=== PATIENT | female | born 1970 | race Caucasian/White ===

== ENCOUNTER → 2016-09-02 | Outpatient (CLI) | payer BC, OTHER ==
[~2016-09-02] MED LIST: IOHEXOL 300 MG/ML 100ML VIAL. IV ONE
--- NOTE | 2016-09-02 10:31 | KCIC ---
Indication: Chronic cough as well as left-sided rib pain. Axial imaging through the chest was performed after the administration of intravenous contrast. One or more of the following individualized dose reduction techniques were utilized for this examination: 1. Automated exposure control 2. Adjustment of the mA and/or kV according to patient size 3. Use of iterative reconstruction technique No prior studies are available for comparison. No axillary, hilar or mediastinal lymphadenopathy is detected. No pericardial or pleural fluid is seen. There is minimal residual thymic tissue noted within the anterior mediastinum. The central airways are widely patent. The lungs appear to be clear. No infiltrates are identified. No nodule or mass is identified. Evaluation of the bony structures demonstrate healing fractures involving the left fifth and sixth lateral ribs. Fracture lines do remain partially visible and there is moderate callus formation present. No other rib fracture is detected. The upper abdomen demonstrates multiple hepatic cysts. IMPRESSION: 1. Healing left fifth and sixth lateral rib fractures. No other significant abnormality is detected. Electronically signed by: Victor Manuel Upton MD (09/02/2016 10:27 AM) [id number]
== END | disposition home or self-care (01) ==
LOC: KCIC CT 08:15
PROVIDERS: ATTEND Nurse Practitioner Family
DX: S22.42XA Multiple fractures of ribs, left side, initial encounter for closed fracture (principal); S27.9XXA Injury of unspecified intrathoracic organ, initial encounter; R05 Cough; X58.XXXA Exposure to other specified factors, initial encounter; Y93.89 Activity, other specified; Y92.89 Other specified places as the place of occurrence of the external cause; Y99.8 Other external cause status
CPT/HCPCS: 71260; Q9967

== ENCOUNTER → 2018-01-01 | Outpatient (CLI) | payer OTHER ==
--- NOTE | 2018-01-01 12:15 | RAD ---
MR#: [id number] Date of Study: 01/01/2018 Ordering Physician: LÓPEZ EPPS, Referring Physician: ROYER MORLEY Tech: RT Nena Vargas) (N) APPROVED REPORT Test Type: Exercise Stress Nurse/Tech: Theresa Bennett R.N. Test Indications: chest pain Cardiac History: smoker Medications: see ehr Medical History: see ehr Resting ECG: SR see printout Resting Heart Rate: 75 bpm Resting Blood Pressure: 156/89mmHg Pretest Chest Pain: No chest pain Nurse/Tech Notes Lungs cta, heart tones regular, good radial pulse Consent: The procedure was explained to the patient in lay terms. Informed consent was witnessed. Adiel eout was entered into [employer]. History and Stress Test performed by RT Nena Tilley) (N) Stress Symptoms No chest pain or symptoms. POST EXERCISE Reason for Termination: Reached target heart rate Target HR: Yes Max HR: 169 bpm 87.5% of Maximum Predicted HR: 175 bpm Exercise duration: 7:05 min:sec, 3 Stage Exercise capacity: 10.0METs Max Blood Pressure: 172/80mmHg Blood Pressure response to exercise: Normal blood pressure response during stress. Heart Rate response to exercise: normal Chest Pain: No. Arrhythmia: No. ST Change: No. INTERPRETATION Stress EKG Conclusion: No evidence of stress induced EKG changes. Imaging Protocol IMAGE PROTOCOL: Rest Tc-99m/stress Tc-99m 1 day Rest: Stress: Viability: Radiopharm.Tc99m RclmkjyvxCi57l Sestamibi Cfxq31vHg 35.2mCi Duration 15min. 12min. Img Date 01/01/2018 01/01/2018 Inj-Img Aeyz17hdi. 60min. Rest Admin Site:IV - Right HandAdministrator:RT Jarek (Willie)(N) Stress Admin Site: IV - Right HandAdministrator: RT Jarek (Willie)(N) STRESS DATA End Diast. Vol.63.0mlAv. Heart Pllt817.0bpm End Syst. Vol.7.0mlCO Index BSA0.0L/min Myocardial Jnox907.0gEject. Subwkwse82.0% Stress Rates Pk. Fill Rate3.78EDV/secLVtime Pk. Fill 149.33msec Pk. Empty Rate4.96ESV/secLVtime Pk. Eject85.18msec 1/3 Pk. Fill1.56EDV/sec Stress Scores Regional WT0.00Summed WT0.00 Regional WM0.00Summed WM0.00 The rest and stress images show normal perfusion, normal contraction and thickening. LV Perf. Quant 17 Seg. SSS0.00 17 Seg. SRS1.00 17 Seg. SDS0.00 Stress Defect Extent (% LAD)0.00Rest Defect Extent (% LAD)3.80Rev. Defect Extent (% LAD)0.00 Stress Defect Extent (% LCX) 0.00Rest Defect Extent (% LCX)0.00Rev. Defect Extent (% LCX)0.00 Stress Defect Extent (% RCA)0.00Rest Defect Extent (% RCA)0.00Rev. Defect Extent (% RCA)0.00 Stress Defect Extent (% LUISANA)0.00Rest Defect Extent (% LUISANA)2.00Rev. Defect Extent (% LUISANA)0.00 Other Information Quality:Average Risk Assessment: Low Risk Conclusion 1. No evidence of EKG changes with stress testing. 2. Normal perfusion at stress/rest. 3. Low risk study. 4. EF > 60%. Signed by : Nnamdi Shanks, Electronically Approved : 01/01/2018 12:14:39
== END | disposition home or self-care (01) ==
LOC: NM 08:54
PROVIDERS: ATTEND Family Medicine
DX: R07.9 Chest pain, unspecified (principal); Z82.49 Family history of ischemic heart disease and other diseases of the circulatory system; Z87.891 Personal history of nicotine dependence
CPT/HCPCS: 78452; 93017; 96374; 96376; A9500

== ENCOUNTER 2018-06-25 07:52 | Day surgery (SDC) | payer OTHER ==
[~2018-06-25] VITALS: Ht 170.2 cm; Wt 93.4 kg
[~2018-06-25 07:52] MED LIST changes: +DOCU-109 PO; +ENOX40DI3 SQ; +ESCITALOPRAM OX10 MG PO; +HYDR-2765 PO; +HYDROmorphone 2 MG/ML VIAL IV PRN; -IOHEXOL 300 MG/ML 100ML VIAL. IV ONE; +IV RINGERS,LACTATED 1000ML 1,000 ML IV SCH; +LIDOCAINE 1% PF 2 ML VIAL. ID PRN; +ONDANSETRON PF 4 MG/2 ML VIAL. IV PRN; +POLY17PO28 PO; +PROCHLORPERAZINE 10 MG/2 ML VIAL. IV PRN; +RANI300C PO; +fentaNYL PF VIAL 100 MCG/2 ML VIAL IV PRN
[2018-06-25] MEDS ORDERED: ceFAZolin 2GM PREMIX 2 GM/50 ML BAG IV ONE (08:00)
[2018-06-25 08:16] LABS: U PREG PATIENT NEGATIVE (NEG)
[2018-06-25] MEDS ORDERED: fentaNYL PF VIAL 100 MCG/2 ML VIAL ONE (08:25)
[2018-06-25] MEDS ORDERED: LIDOCAINE 2% PF 5 ML VIAL. ONE (08:25)
[2018-06-25] MEDS ORDERED: ONDANSETRON PF 4 MG/2 ML VIAL. ONE (08:25)
[2018-06-25] MEDS ORDERED: DEXAMETHASONE SOD PHOS 4 MG/ML VIAL ONE (08:25)
[2018-06-25] MEDS ORDERED: PROPOFOL 20 ML IV ONE ×2 (08:25→10:49)
[2018-06-25] MEDS ORDERED: MIDAZOLAM HCL/PF 2 MG/2 ML VIAL. ONE (08:58)
[2018-06-25] MEDS ORDERED: HYDR-3165 PO (10:15)
[2018-06-25] MEDS ORDERED: KETOROLAC 30 MG/ML INJ FOR OR. INJ ONE (10:15)
--- NOTE | 2018-06-25 10:16 | DISCH ---
DISCHARGE INSTRUCTIONS Condition on Discharge Condition on Discharge: Stable Activity After Discharge Activity Instructions for Disc: Activity as tolerated (May weight-bear and increase activity as tolerated just control swelling and protect from rubbing on incision) Bathing Instructions: Shower-keep dressing dry Weight Bearing Status after Di: As tolerated Diet after Discharge Diet after Discharge: Regular Wound Incision Care Wound/Incision Care: Change dressing (name remove dressing in 3 days may then shower no soaking until sutures removed) Contacting the [facility] after DC Call your doctor for: Concerns you may have Follow-Up Follow up with: Dr. Bond 10 days JULIO BOND MD June 25, 2018 10:16
[2018-06-25] MEDS ORDERED: SEVOFLURANE 61 TO 120 MINUTES. IH ONE (10:28)
[2018-06-25] MEDS ORDERED: SEVOFLURANE 31 TO 60 MINUTES. IH ONE (10:49)
[2018-06-25] MEDS: fentaNYL PF VIAL 100 MCG/2 ML VIAL IV PRN ×2 (11:24→11:35)
[2018-06-25] MEDS: MORPHINE SULFATE 2 MG/ML VIAL. IV PRN ×2 (11:28→11:41)
[2018-06-25] MEDS ORDERED: HYDROcodone/APAP 7.5/325MG 1 TAB TABLET PO ONE (11:30)
[2018-06-25 12:00] VITALS: BP 137/77
--- NOTE | 2018-06-25 13:10 | PDOC4 ---
Operative Note Operative Note Date of surgery 06/25/2018 Preoperative diagnosis: Retained hardware syndesmotic screws right ankle Postoperative diagnosis: Same Operative procedure: Removal of syndesmotic screws right ankle 2 Surgeon: Varun Anesthesia: Gen. Estimated blood loss: 10 mL Consultations: None Operative indications: Laurita is a 48-year-old female that it undergone previous fixation of an ankle fracture with a syndesmotic injury. I had discussed with her the role of syndesmotic screws that they are temporary fixation to allow the ligaments to heal and typically those are removed after adequate healing time to allow the ankle joint to move in its normal manner. I had described that it is no real restriction on her weightbearing and the only concerns mainly surrounding healing of the small incision. All her questions were answered she wishes to proceed with surgical evaluation and treatment. Operative text: Patient was identified procedure verified patient placed in the supine position on the operative table. After adequate amounts of general anesthesia were administered the right lower extremity was prepped and draped in standard sterile fashion with a thigh tourniquet. After timeout was performed patient procedure identified and verified the right lower extremity was exsanguinated by Esmarch bandage tourniquet inflated to 350 mmHg a small incision was localized along her previous lateral incision under radiologic guidance and dissection carried out down to the screws which were removed under fluoroscopic guidance. Syndesmosis remained intact the remaining hardware was retained and ankle joint mortise noted to be anatomically reduced. Thorough irrigation carried out normal saline solution tourniquet was deflated bleeding points controlled by electrocautery and skin closure with nylon suture sterile dressings were applied patient was returned to recovery room in stable condition having tolerated procedure well JULIO VIRK MD June 25, 2018 13:10
== END 2018-06-25 12:20 | disposition home or self-care (01) ==
LOC: SURG 07:52
PROVIDERS: ATTEND Orthopaedic Surgery
DX: T84.84XA Pain due to internal orthopedic prosthetic devices, implants and grafts, initial encounter (principal); G89.18 Other acute postprocedural pain; Z98.890 Other specified postprocedural states; Z82.49 Family history of ischemic heart disease and other diseases of the circulatory system; Z87.891 Personal history of nicotine dependence; Z79.899 Other long term (current) drug therapy; Y83.1 Surgical operation with implant of artificial internal device as the cause of abnormal reaction of the patient, or of later complication, without mention of misadventure at the time of the procedure; Y92.89 Other specified places as the place of occurrence of the external cause
CPT/HCPCS: 20680; 76000; 81025; J0696; J1100; J1885; J2001; J2250; J2270; J2405; J2704; J3010

== ENCOUNTER → 2020-04-13 | Outpatient (CLI) | payer OTHER ==
[~2020-04-13] MED LIST changes: +HYDR-3165 PO; -HYDROmorphone 2 MG/ML VIAL IV PRN; -IV RINGERS,LACTATED 1000ML 1,000 ML IV SCH; -LIDOCAINE 1% PF 2 ML VIAL. ID PRN; -ONDANSETRON PF 4 MG/2 ML VIAL. IV PRN; -PROCHLORPERAZINE 10 MG/2 ML VIAL. IV PRN; -fentaNYL PF VIAL 100 MCG/2 ML VIAL IV PRN
--- NOTE | 2020-04-13 10:41 | CARD ---
MR#: [id number] Date of Study: 04/13/2020 Ordering Physician: ADIA COWAN, Referring Physician: ADIA COWAN, Tech: Anabela Ahn, [facility] APPROVED REPORT EXAM: Two-dimensional and M-mode echocardiogram with Doppler and color Doppler. Other Information Quality : AverageHR: 93bpm INDICATION Murmur RISK FACTORS Hyperlipidemia 2D DIMENSIONS RVDd2.9 (2.9-3.5cm)Left Atrium(2D)3.8 (1.6-4.0cm) IVSd1.1 (0.7-1.1cm)Aortic Root(2D)2.6 (2.0-3.7cm) LVDd4.7 (3.9-5.9cm)LVOT Diameter2.0 (1.8-2.4cm) PWd1.1 (0.7-1.1cm)LVDs3.0 (2.5-4.0cm) FS (%) 35.3 %SV66.3 ml Aortic Valve AoV Peak Kamar.131.1cm/sAoV VTI30.0cm AO Peak GR.6.9mmHgLVOT Peak Kamar.117.8cm/s LVOT VTI 26.20cmAO Mean GR.4mmHg IAN (VMAX)1.81hf7GHS (VTI)2.63cm2 Mitral Valve MV E Cndpmcir18.2cm/sMV DECEL SJQF770uo MV A Vxofgicl95.4cm/sMV LOO90fy E/A Ratio1.0MVA (PHT)3.96cm2 TDI E/Lateral E'6.2E/Medial E'5.9 Pulmonary Valve PV Peak Hjnuhiwj927.7cm/sPV Peak Grad.4mmHg Tricuspid Valve TR P. Rybngyfh319wv/sRAP ZRZIBQGJ8vlIf TR Peak Gr.76siTdVRCL55sdUg Pulmonary Vein S1 Umzedrnu09.1cm/sD2 Gcgltjfg92.8cm/s PVa uusofrgb857uhla LEFT VENTRICLE The left ventricle is normal size. There is borderline to mild concentric left ventricular hypertroph y. The left ventricular systolic function is normal and the ejection fraction is within normal range. The ejection fraction is 55 to 60%. There is normal LV segmental wall motion. Transmitral Doppler fl ow pattern is Grade I-abnormal relaxation pattern. RIGHT VENTRICLE The right ventricle is normal size. There is normal right ventricular wall thickness. The right ventr icular systolic function is normal. ATRIA The left atrium size is normal. The right atrium size is normal. The interatrial septum is intact wit h no evidence for an atrial septal defect or patent foramen ovale as noted on 2-D or Doppler imaging. AORTIC VALVE The aortic valve is normal in structure and function. Doppler and Color Flow revealed no significant aortic regurgitation. There is no significant aortic valvular stenosis. Calculated aortic valve area is 2.70 cm2 with maximum pressure gradient of 8 mmHg and mean pressure gradient of 4 mmHg. MITRAL VALVE The mitral valve is normal in structure and function. There is no evidence of mitral valve prolapse. There is no mitral valve stenosis. Doppler and Color-flow revealed trace mitral regurgitation. TRICUSPID VALVE The tricuspid valve is normal in structure and function. Doppler and Color Flow revealed trace tricus pid regurgitation with an estimated PAP of 26 mmHg. There is no tricuspid valve stenosis. PULMONIC VALVE The pulmonic valve is not well visualized. Doppler and Color Flow revealed trace pulmonic valvular re gurgitation. GREAT VESSELS The aortic root is normal in size. The ascending aorta is borderline enlarged in size measuring 3.42 cm. The IVC is normal in size and collapses >50% with inspiration. PERICARDIAL EFFUSION There is no evidence of significant pericardial effusion. Critical Notification Critical Value: No <Conclusion> The left ventricle is normal size. The left ventricular systolic function is normal and the ejection fraction is within normal range. The ejection fraction is 55 to 60%. There is borderline to mild concentric left ventricular hypertrophy. Doppler and Color Flow revealed no significant aortic regurgitation. There is no significant aortic valvular stenosis. Doppler and Color-flow revealed trace mitral regurgitation. Doppler and Color Flow revealed trace tricuspid regurgitation with an estimated PAP of 26 mmHg. The ascending aorta is borderline enlarged in size measuring 3.42 cm. Signed by : Hammad Ward MD Electronically Approved : 04/13/2020 10:40:29
== END ==
LOC: ECHO 07:48
PROVIDERS: ATTEND Nurse Practitioner Gerontology
DX: R01.1 Cardiac murmur, unspecified (principal)
CPT/HCPCS: 93306